=== PATIENT | male | born 1985 | race Two or more races ===

== ENCOUNTER 2023-06-07 23:44 | Emergency (ER) | payer SELFPAY ==
[~2023-06-07] VITALS: Ht 188 cm; Wt 100.0 kg
[2023-06-08] VITALS: BP 132/78; PULSE 59; RESP 17; TEMP 98.2
[2023-06-08] MEDS ORDERED: IBUP-2029 MT (06:32)
[2023-06-08] MEDS ORDERED: AMOX1TAB16 MT (06:32)
== END 2023-06-08 07:24 | disposition home or self-care (01) ==
LOC: ER 23:44
DX: S90.122A Contusion of left lesser toe(s) without damage to nail, initial encounter (principal); L03.032 Cellulitis of left toe; X58.XXXA Exposure to other specified factors, initial encounter; Y93.89 Activity, other specified; Y92.89 Other specified places as the place of occurrence of the external cause; Y99.8 Other external cause status
CPT/HCPCS: 73630; 99283